=== PATIENT | female | born 1960 | race Caucasian/White ===

== ENCOUNTER 2016-04-03 10:27 | Inpatient (IN) | payer BC ==
[~2016-04-03] VITALS: Ht 160 cm; Wt 63.0 kg
[2016-04-03 11:47] LABS: MCH 31.3 PG (29.0-34.0); MCHC 34.8 G/DL (30.0-36.0); MCV 90.1 FL (83-99); MEAN PLAT.VOLUME 9.9 uM^3 (9.5-12.4); PLATELET COUNT 306 K/uL (156-360); RBC DIS.WIDTH-SD 42.3 % (39-53); RED BLOOD COUNT 4.66 M/uL (3.80-5.20); WHITE BLOOD COUNT 23.2 K/uL (4.1-10.2)
[2016-04-03 11:51] LABS: CHLORIDE 102 mEq/L (99-109); POTASSIUM 3.8 mEq/L (3.7-5.4); SODIUM 138 mEq/L (136-147)
[2016-04-03 11:53] LABS: GLUCOSE 121 mg/dL (70-99)
[2016-04-03 11:55] LABS: ANION GAP 14 MEQ/L (2-14)
[2016-04-03 11:57] LABS: GFR ESTIMATE (CALCULATED) > 59 mL/min/
[2016-04-03 11:58] LABS: UREA NITROGEN (BUN) 8 mg/dL (9-23)
[2016-04-03 12:03] LABS: TROP-I INTERPRETATION NEGATIVE; TROPONIN-I < 0.01 ng/mL (0.0-0.30)
[2016-04-03 14:18] LABS: D-DIMER ELISA 0.39 mg/L FEU (< 0.57)
[2016-04-03 14:20] LABS: TROP-I INTERPRETATION NEGATIVE; TROPONIN-I < 0.01 ng/mL (0.0-0.30)
[2016-04-03] MEDS ORDERED: AZITHROMYCIN250 MG PO (17:09)
[2016-04-03] MEDS ORDERED: PROTONIX40 MG PO (19:09)
[2016-04-03] MEDS ORDERED: VENTOLIN HFA18 GM IH (19:09)
[2016-04-03] MEDS ORDERED: BENADRYL ALLERG25 MG PO (19:10)
[2016-04-03] MEDS ORDERED: SPIRIVA1 INHALATI IH (19:10)
[2016-04-03] MEDS ORDERED: LO-DOSE ASPIRIN81 M1 PO (19:10)
[2016-04-03] MEDS ORDERED: ADVIL200 MG PO (19:11)
[2016-04-03 22:36] LABS: ABS NEUTROPHIL COUNT 17.37; PLAT.SUFFICIENCY ADEQUATE
[2016-04-04 05:54] LABS: EOSINOPHIL (%) 0.1 % (0-5); HEMATOCRIT 35.6 % (36.0-46.0); IMMATURE GRANULOCYTE (%) 0.3 % (0.0-0.7); IMMATURE GRANULOCYTE COUNT 0.5 K/uL; MCH 31.8 PG (29.0-34.0); MCHC 34.8 G/DL (30.0-36.0); MCV 91.3 FL (83-99); MEAN PLAT.VOLUME 9.5 uM^3 (9.5-12.4); MONOCYTE (%) 7.5 % (3-12); MONOCYTE COUNT 1.3 K/uL (0-0.8); NEUTROPHIL (%) 86.1 % (45-76); NEUTROPHIL COUNT 14.6 K/uL (1.8-6.4); PLATELET COUNT 267 K/uL (156-360); RBC DIS.WIDTH-SD 42.5 % (39-53); WHITE BLOOD COUNT 16.9 K/uL (4.1-10.2)
[2016-04-04 06:03] LABS: CHLORIDE 105 mEq/L (99-109); POTASSIUM 3.2 mEq/L (3.7-5.4); SODIUM 136 mEq/L (136-147)
[2016-04-04 06:05] LABS: GLUCOSE 116 mg/dL (70-99)
[2016-04-04 06:06] LABS: ANION GAP 12 MEQ/L (2-14)
[2016-04-04 06:07] LABS: TOTAL BILIRUBIN 0.8 mg/dL (0.0-1.0)
[2016-04-04 06:08] LABS: ALKALINE PHOSPHATASE 88 IU/L (3-129)
[2016-04-04 06:09] LABS: GFR ESTIMATE (CALCULATED) > 59 mL/min/
[2016-04-04 06:10] LABS: UREA NITROGEN (BUN) 7 mg/dL (9-23)
[2016-04-04 09:01] LABS: ADD MIUA? YES; BILIRUBIN NEGATIVE; BLOOD MODERATE; COLOR YELLOW ((YELLOW)); GLUCOSE (STRIP) NEGATIVE; KETONES 15; LEUKOCYTES NEGATIVE; NITRITE NEGATIVE; PROTEIN (STRIP) NEGATIVE; SPECIFIC GRAVITY 1.023 (1.000-1.030); UROBILINOGEN 0.2 MG/DL (0.2-1.0)
[2016-04-04 09:26] LABS: BACTERIA NONE SEEN; CASTS NONE SEEN /LPF; EPITHELIAL CELLS RARE; MUCUS NONE SEEN; PATHOLOGICAL CAST NONE SEEN; SMALL ROUND CELL NONE SEEN; UCUL ADDED? NO; WHITE BLOOD CELLS 0-5 /HPF (0-5); YEAST-LIKE CELL NONE SEEN
[2016-04-04 09:41] LABS: CRYSTALS NONE SEEN
[2016-04-04 12:33] VITALS: BP 122/75
[2016-04-04 15:10] VITALS: BP 103/55
[2016-04-04 19:29] VITALS: BP 100/56
[2016-04-04 23:28] VITALS: BP 107/63
[2016-04-05 03:26] VITALS: BP 110/60
[2016-04-05 07:22] LABS: EOSINOPHIL (%) 0.5 % (0-5); EOSINOPHIL COUNT 0.1 K/uL (0-0.3); HEMATOCRIT 35.6 % (36.0-46.0); IMMATURE GRANULOCYTE (%) 0.3 % (0.0-0.7); MCH 30.6 PG (29.0-34.0); MCHC 33.1 G/DL (30.0-36.0); MCV 92.2 FL (83-99); MEAN PLAT.VOLUME 10.3 uM^3 (9.5-12.4); MONOCYTE (%) 9.2 % (3-12); MONOCYTE COUNT 1.1 K/uL (0-0.8); NEUTROPHIL (%) 81.9 % (45-76); NEUTROPHIL COUNT 10.2 K/uL (1.8-6.4); PLATELET COUNT 313 K/uL (156-360); RBC DIS.WIDTH-CV 13.3 % (11.8-14.6); RBC DIS.WIDTH-SD 44.7 % (39-53); RED BLOOD COUNT 3.86 M/uL (3.80-5.20); WHITE BLOOD COUNT 12.4 K/uL (4.1-10.2)
[2016-04-05 07:25] VITALS: BP 108/64
[2016-04-05 07:49] LABS: INTERNAL CONTROL VALID? YES
[2016-04-05 07:51] LABS: ANION GAP 14 MEQ/L (2-14); CHLORIDE 101 MEQ/L (99-109); GFR ESTIMATE (CALCULATED) > 59 mL/min/; GLUCOSE 94 mg/dL (70-99); POTASSIUM 3.6 MEQ/L (3.7-5.4); SAMPLE HEMOLYSIS CHECK 0; SAMPLE ICTERIC CHECK 0; SAMPLE LIPEMIA CHECK 0; SODIUM 136 MEQ/L (136-147); UREA NITROGEN (BUN) 7 mg/dL (9-23)
[2016-04-05 11:55] VITALS: BP 113/70
[2016-04-05 15:30] VITALS: BP 105/57
[2016-04-05 19:30] VITALS: BP 118/74
[2016-04-05 23:02] VITALS: BP 135/80
[2016-04-06 03:00] VITALS: BP 112/71
[2016-04-06 07:30] VITALS: BP 103/66
[2016-04-06] MEDS ORDERED: OMNICEF300 MG PO (09:57)
== END 2016-04-06 12:04 | disposition home or self-care (01) | DRG 190 ==
LOC: EME 10:27 → EDOF 15:58 → 2EAST 19:20 → EDOF 19:20 → 2EAST 04-04 12:15
PROVIDERS: Internal Medicine; Physician Assistant Medical
DX: J44.0 Chronic obstructive pulmonary disease with (acute) lower respiratory infection (principal); J18.9 Pneumonia, unspecified organism; J96.01 Acute respiratory failure with hypoxia; J45.909 Unspecified asthma, uncomplicated; K21.9 Gastro-esophageal reflux disease without esophagitis; F17.210 Nicotine dependence, cigarettes, uncomplicated; Z79.82 Long term (current) use of aspirin; Z23 Encounter for immunization
CPT/HCPCS: 71020; 71275; 80048; 80053; 81003; 83605; 84484; 85007; 85025; 85027; 85379; 87040; 87070; 87106; 87205; 87449; 93005; 94640; 94640 76; 94799; 99202; 99281; 99285; J0456; J0692; J0696; J1650; J1956; J2270; J7030; J7050; J7120

== ENCOUNTER 2017-06-20 17:34 | Emergency (ER) | payer OTHER ==
[~2017-06-20] VITALS: Ht 160 cm; Wt 56.3 kg
[~2017-06-20 17:34] MED LIST: ADVIL200 MG PO; AZITHROMYCIN250 MG PO; BENADRYL ALLERG25 MG PO; LO-DOSE ASPIRIN81 M1 PO; OMNICEF300 MG PO; PROTONIX40 MG PO; SPIRIVA1 INHALATI IH; VENTOLIN HFA18 GM IH
[2017-06-20 18:30] LABS: HEMATOCRIT 39.7 % (36.0-46.0); HEMOGLOBIN 13.4 G/DL (11.9-15.5); MCH 31.6 PG (29.0-34.0); MCHC 33.8 G/DL (30.0-36.0); MCV 93.6 FL (83-99); PLATELET COUNT 339 K/uL (156-360); RBC DIS.WIDTH-CV 12.8 % (11.8-14.6); RBC DIS.WIDTH-SD 43.8 % (39-53); RED BLOOD COUNT 4.24 M/uL (3.80-5.20); WHITE BLOOD COUNT 12.6 K/uL (4.1-10.2)
[2017-06-20 18:38] LABS: ALBUMIN 4.4 g/dL (3.2-4.8); CHLORIDE 105 mEq/L (99-109); POTASSIUM 4.7 mEq/L (3.7-5.4); SODIUM 140 mEq/L (136-147)
[2017-06-20 18:41] LABS: GLUCOSE 102 mg/dL (70-99); TOTAL PROTEIN 6.6 g/dL (6.4-8.3)
[2017-06-20 18:43] LABS: TOTAL BILIRUBIN 0.3 mg/dL (0.0-1.0)
[2017-06-20 18:44] LABS: ALKALINE PHOSPHATASE 92 IU/L (3-129); CREATININE 0.8 mg/dL (0.6-1.3); GFR ESTIMATE (CALCULATED) > 59 mL/min/
[2017-06-20 18:45] LABS: UREA NITROGEN (BUN) 16 mg/dL (9-23)
[2017-06-20 18:46] LABS: AST (GOT) 13 IU/L (2-34)
[2017-06-20 18:47] LABS: ALT (GPT) 14 IU/L (3-49)
[2017-06-20 19:00] LABS: BILIRUBIN NEGATIVE; BLOOD LARGE; GLUCOSE (STRIP) NEGATIVE; KETONES NEGATIVE; LEUKOCYTES NEGATIVE; NITRITE POSITIVE; PROTEIN (STRIP) 100; SPECIFIC GRAVITY 1.009 (1.000-1.030); UROBILINOGEN 0.2 MG/DL (0.2-1.0)
[2017-06-20 19:24] LABS: APPEARANCE CLOUDY ((CLEAR)); COLOR RED ((YELLOW))
[2017-06-20 20:01] LABS: RED BLOOD CELLS TNTC /HPF (0-5); UCUL ADDED? YES
[2017-06-20] MEDS ORDERED: PYRIDIUM200 MG PO (20:11)
[2017-06-20] MEDS ORDERED: KEFLEX500 MG PO (20:11)
[2017-06-20 20:36] VITALS: BP 139/86
== END 2017-06-20 20:45 | disposition home or self-care (01) ==
LOC: EME 17:34
DX: N39.0 Urinary tract infection, site not specified (principal); J44.9 Chronic obstructive pulmonary disease, unspecified; F17.200 Nicotine dependence, unspecified, uncomplicated; Z90.710 Acquired absence of both cervix and uterus; Z79.82 Long term (current) use of aspirin; Z88.5 Allergy status to narcotic agent
CPT/HCPCS: 80053; 81003; 85027; 87077; 87086; 87186; 99281; 99284